=== PATIENT | male | born 1960 ===

== ENCOUNTER 2017-12-10 08:19 | Day surgery (SDC) | payer MEDICAID ==
[2017-12-04 14:11] VITALS: BMI 21.5
[2017-12-10] MEDS ORDERED: Propofol 10 mg/ml Inj (20 ML) ONE (09:10)
[2017-12-10] MEDS ORDERED: Esmolol 100 mg/10ml Inj IV ONE (09:16)
[2017-12-10] MEDS ORDERED: Sodium Chloride 0.9% 1,000 ML IV SCH (09:45)
[2017-12-10] MEDS ORDERED: Simethicone 40 mg/0.6 ml Liquid (30 ml) ONE (10:04)
[2017-12-10 10:45] VITALS: BP 99/74; PULSE 80; RESP 14; TEMP 97; O2SAT 100
== END 2017-12-10 11:40 | disposition home or self-care (01) ==
LOC: ENDO 08:19
PROVIDERS: ATTEND Internal Medicine
DX: K29.70 Gastritis, unspecified, without bleeding (principal); K44.9 Diaphragmatic hernia without obstruction or gangrene; K64.8 Other hemorrhoids; D64.9 Anemia, unspecified
CPT/HCPCS: 43239; 45378; 88305; 88342; J2001; J2704; J7040 ×2